=== PATIENT | male | born 1955 | race Caucasian/White ===

== ENCOUNTER → 2016-06-10 | Day surgery (SDC) | payer OTHER ==
--- NOTE | 2016-05-30 09:32 | HP ---
HISTORY AND PHYSICAL: DATE OF ADMISSION/SURGERY: 06/10/16 - [facility] He is scheduled for surgery at [facility] on 06/10/16. CHIEF COMPLAINT: Ulcer, right lower extremity. HISTORY OF PRESENT ILLNESS: Bi Burgos is a 60-year-old male male referred from the [facility] for a nonhealing ulcer of the right lower extremity located on the lateral aspect of the right leg. The ulcer recurs frequently. He has varicose veins in the posterior aspect of the calf. A venous duplex scan was done, which showed the deep system was normal, the greater saphenous vein diameter at the saphenofemoral junction is 6.9 mm with a reflux time of 3.5 seconds. The greater saphenous vein diameter above the knee is 6.2 mm and in the upper segment 10.6 mm with a reflux time of 2.9 seconds. The short saphenous vein diameter is 7.6 mm with a reflux time of 3.4 seconds. The saphenopopliteal junction could not be visualized. Dr. Flannery has discussed the nature and course of venous reflux disease and endoluminal closure. The patient has been given a chance to ask questions and these have been answered. The patient will sign on admission an informed consent for right leg radiofrequency closure of the greater saphenous vein. PAST MEDICAL HISTORY: High blood pressure and sleep apnea. PAST SURGICAL HISTORY: Total knee replacement on the left approximately 3 years ago. MEDICATIONS: At the time of his preoperative history and physical, he was on antibiotics which he did not know what they were for a sinus infection. Lisinopril 10 mg. ALLERGIES: None. FAMILY HISTORY: Father, lung CA; sister, breast cancer. SOCIAL HISTORY: The patient is retired. He denied tobacco use and alcohol use. REVIEW OF SYSTEMS: He denied problems with anesthesia. He denied bleeding tendencies, phlebitis, or pulmonary embolus. He does not take a daily aspirin. PHYSICAL EXAMINATION GENERAL: Bi Burgos is a 60-year-old male, obese, in no acute distress. VITAL SIGNS: Blood pressure 106/60, pulse is 84. Height 6 feet 2 inches, weight 418 pounds. HEENT: Within normal limits. Teeth are in fair repair. Pharynx clear. CHEST: Lungs clear. HEART: S1, S2. Regular rate and rhythm. No extra heart sounds, murmurs, clicks. ABDOMEN: Soft, nontender. Positive bowel sounds. Positive tympany. NEURO: Alert and oriented x3. Rest of the exam was grossly intact. LOCAL EXAM: Shows an ulcer located on the right lower extremity on the lateral aspect of the right leg. The patient also had bulging varicosities on the posterior aspect of the calf. He has 1 to 2+ edema. IMPRESSION: Superficial venous reflux disease secondary to an incompetent right greater saphenous vein and right short saphenous vein. PLAN: Same-day surgery admission to Dr. Flannery's service for right leg endoluminal closure of the greater saphenous vein followed by right leg endoluminal closure of the short saphenous vein and microphlebectomies at a later late. EBONY BENÍTE[place] [id number]/CPS #: [id number] MTDD
[~2016-06-10] MED LIST: Buffered Lidocaine 1% SYR 3ML* 3 ML/SYR SYRINGE INTRADERM ONE; Buffered Lidocaine 1% SYR 3ML* 3 ML/SYR SYRINGE ONE; EPINEPHrine AMP 1 MG/ML ONE; Enoxaparin(*) 40 MG/0.4 ML SYR ONE; Lidocaine 2% PF* 10 ML AMP ONE; Propofol* 10 MG/ML 20 ML BTL IV PUSH ONE; Sodium Bicarbonate 8.4% SYR* 10 ML SYRINGE ONE; ceFAZolin 2 GM PREMIX (*) 2 GM/50 ML BAG IVPB ONE
[2016-06-10 10:07] VITALS: BP 99/60
--- NOTE | 2016-06-11 05:56 | OP ---
DATE OF OPERATION: 06/10/[address] [facility] DATE OF : 53 SURGEON: John Paul Flannery MD ANESTHESIOLOGIST: Jb Childers MD ANESTHESIA: Local plus MAC. PRE-OP DIAGNOSIS: Venous stasis ulcer, right lower extremity, secondary to an incompetent right greater saphenous vein. POST-OP DIAGNOSIS: Venous stasis ulcer, right lower extremity, secondary to an incompetent right greater saphenous vein. OPERATIVE PROCEDURE: Radiofrequency closure, right greater saphenous vein. ESTIMATED BLOOD LOSS: None. DESCRIPTION OF PROCEDURE: The patient was taken to the procedure room. He underwent ultrasound mapping of the right greater saphenous vein. He was then placed in supine position. He received preoperative antibiotics and Lovenox for DVT prophylaxis. He was prepped and draped in the usual sterile fashion. Under sedation, lidocaine 1% was used to infiltrate on the medial aspect of the right knee area, percutaneous cannulation of the greater saphenous vein was done under ultrasound guidance. Once the small needle and wire were in place, the needle was exchanged for a 7/11 introducer sheath that was advanced over the wire inside the greater saphenous vein after which we proceeded to remove the introducer and the wire. The sheath was left in place, which was then back- bled and flushed with saline. We then proceeded to advance the Fast Track radiofrequency catheter inside the greater saphenous vein via the sheath, positioning the tip of the catheter 2 cm below the saphenofemoral junction. We then proceeded to infiltrate tumescent local anesthesia around the greater saphenous vein in the catheter from the entrance point up to the saphenofemoral junction. After this was done, the patient was placed in Trendelenburg position. We proceeded to activate the radio-frequency unit. The first 7 cm were cycled twice and then a single cycle thereafter, delivering a total of 7 cycles to the greater saphenous vein. After this was completed, there was evidence of closure of the treated vein; however, the common femoral vein appeared to be compressible without any abnormality. After this was done, the small incision was closed with 5-0 Prolene and Steri-Strips. A light pressure dressing was applied to the right lower extremity. The patient tolerated the procedure well and he was taken in good condition to recovery room. [id number]/[facility] #: [id number] [facility]
== END | disposition home or self-care (01) ==
LOC: OREAST 07:21
PROVIDERS: ATTEND Surgery
DX: I83.212 Varicose veins of right lower extremity with both ulcer of calf and inflammation (principal); G47.33 Obstructive sleep apnea (adult) (pediatric); Z68.43 Body mass index [BMI] 50.0-59.9, adult; I10 Essential (primary) hypertension
CPT/HCPCS: J0171; J0690; J1650; J2001; J2704

== ENCOUNTER → 2016-07-15 07:18 | Day surgery (SDC) | payer OTHER ==
--- NOTE | 2016-06-27 09:36 | HP ---
HISTORY AND PHYSICAL: DATE OF ADMISSION: He is scheduled for surgery at [facility], on 07/15/16. DATE OF HISTORY AND PHYSICAL: 06/16/16 CHIEF COMPLAINT: Ulcer, right leg. HISTORY OF PRESENT ILLNESS: Bi Burgos is a 60-year-old male who most recently, on 06/10/16, underwent radiofrequency closure of the right greater saphenous vein by Dr. Flannery at [facility]. The patient now returns for further surgery for radiofrequency closure of the right leg short saphenous vein with minimal phlebectomies. The patient is doing well postoperatively. He notes no changes in his medical condition since his surgery. His initial venous duplex scan showed the deep system to be normal. His initial venous duplex scan showed that the short saphenous vein diameter was 7.6 mm with a reflux time of 3.4 seconds and the saphenopopliteal junction could not be visualized. On venous duplex scan at his postop appointment, the greater saphenous vein was closed along the body to the point of access and did not extend into the saphenofemoral junction. Dr. Flannery has discussed the nature and course of endoluminal closure and venous reflux disease and has discussed the material risks and relevant alternatives to surgery. These were reviewed with the patient at his preoperative appointment including but not limited to infection , bleeding, poor healing, recurrence of DVT. The patient has been given a chance to ask questions. These have been answered. The patient will sign on admission an informed consent for right leg endoluminal closure of the short saphenous vein and microphlebectomies. PAST MEDICAL HISTORY: Morbid obesity, high blood pressure, and sleep apnea. PAST SURGICAL HISTORY: Total knee replacement on the left approximately 3 years ago. He also has a history of umbilical hernia repair and tonsillectomy. MEDICATIONS: Lisinopril. ALLERGIES: None. FAMILY HISTORY: Father, lung CA. Sister, breast CA. SOCIAL HISTORY: The patient is retired. He denied tobacco use and alcohol use. REVIEW OF SYSTEMS: He denied problems with anesthesia. He denied bleeding tendencies, phlebitis, pulmonary embolism. He does not take aspirin or medications containing aspirin. PHYSICAL EXAMINATION GENERAL: Bi Burgos is a 60-year-old male, obese, in no acute distress. VITAL SIGNS: Blood pressure 106/60, pulse is 84, weight 430, height 74 inches. HEENT: Within normal limits. Teeth are in fair repair. Pharynx clear. EOMs intact. NECK: Supple. Thyroid nonpalpable. SPINE: Normal curvature. ABDOMEN: Soft, nontender. Positive bowel sounds. Positive tympany. HEART: S1, S2. Regular rate and rhythm. No extra heart sounds, murmurs, clicks, or rubs. EXTREMITIES: +2 symmetrical radial pulses. NEURO: Alert and oriented x3. Rest of the exam was grossly intact. LOCAL EXAM: Shows 1+ edema of the left lower extremity. The patient has an area of ulceration on the right lateral knee and skin changes to the lower leg. IMPRESSION: Status post right leg radiofrequency closure of the greater saphenous vein and venous reflux disease secondary to an incompetent right short saphenous vein. PLAN: Same-day surgery admission to Dr. Flannery's service for right leg endoluminal closure of the short saphenous vein and microphlebectomies. EBONY BENÍTEZ [place] [id number]/[facility] #: [id number] [facility]ITALRoger
[~2016-07-15 07:18] MED LIST changes: -Buffered Lidocaine 1% SYR 3ML* 3 ML/SYR SYRINGE ONE; +Enoxaparin(*) 30 MG/0.3 ML SYR ONE; -Enoxaparin(*) 40 MG/0.4 ML SYR ONE; +KETAMINE HCL* 50 MG/ML 10 ML VIAL ONE; +Lidocaine 1% MPF* 2 ML VIAL ONE; +Lidocaine 2% PF * 5 ML VIAL ONE; +Midazolam* 1 MG/ML 5 ML VIAL (5 MG) ONE; +Polidocanol 1% 20 MG/2 ML AMP IV ONE; +ceFAZolin 1 GM VIAL(*) ONE
[2016-07-15 09:48] VITALS: BP 105/58
--- NOTE | 2016-07-16 00:08 | OP ---
DATE OF OPERATION: 07/15/16 [facility] DATE OF : 53 SURGEON: John Paul Flannery MD SYSTEM SOFTWARE DEVELOPER: Katelynn Ruelas NP ANESTHESIOLOGIST: Jb Childers MD ANESTHESIA: Local tumescent plus MAC. PRE-OP DIAGNOSES: Superficial venous reflux disease with symptomatic varicose veins, venous hypertension, and ulcer formation secondary to an incompetent right short saphenous vein. POST-OP DIAGNOSES: Superficial venous reflux disease with symptomatic varicose veins, venous hypertension, and ulcer formation secondary to an incompetent right short saphenous vein. OPERATIVE PROCEDURE: 1. Radiofrequency closure, right short saphenous vein. 2. Microphlebectomies, less than 10 incisions. ESTIMATED BLOOD LOSS: Approximately 20 cc. DESCRIPTION OF PROCEDURE: The patient was taken to the procedure room. He underwent ultrasound mapping of the right short saphenous vein as well as marking of the varicosities. He was then placed on the prone position. He was prepped and draped in the usual sterile fashion. Under sedation, lidocaine 1% was used to infiltrate on the mid-posterior aspect of the right calf, percutaneous cannulation of the short saphenous vein was done under ultrasound guidance once the small needle and wire were in place. The needle was exchanged for a 7-Romanian 11-cm long introducer sheath that was advanced over the wire inside the short saphenous vein, after which we proceeded to remove the introducer and the wire. The sheath was left in place which was then backbled and flushed with saline. We then proceeded to advance the FasTracker radiofrequency catheter 7-cm long coil and after this was done, we positioned the tip of the catheter 2 cm from the saphenopopliteal junction. After this was completed, tumescent local anesthesia was then infiltrated directly around the short saphenous vein and the catheter from the entrance point up to the saphenopopliteal junction. Once this was completed, we proceeded to activate the radiofrequency unit. The first 7 cm were cycled twice and then a single cycle thereafter delivering a total of 5 cycles to the short saphenous vein. After this was completed, there was evidence of closure in the treated vein; however, the popliteal vein appeared to be compressible. After this was done, the previously marked varicose veins were then removed by small incision in a stab avulsion technique. Less than 10 incisions were performed. Then after this was completed, incisions were closed with 5-0 Prolene and Steri-Strips. A light pressure dressing was applied to the right lower extremity. The patient tolerated the procedure well and he was then taken to recovery room in good condition. [id number]/[facility] #: [id number] MTDRoger
== END | disposition home or self-care (01) ==
LOC: OREAST 07:18
PROVIDERS: ATTEND Surgery
DX: I83.211 Varicose veins of right lower extremity with both ulcer of thigh and inflammation (principal); L97.111 Non-pressure chronic ulcer of right thigh limited to breakdown of skin; E66.01 Morbid (severe) obesity due to excess calories; I10 Essential (primary) hypertension; G47.30 Sleep apnea, unspecified
CPT/HCPCS: 88300; J0171; J0690; J1650; J2001; J2250; J2704